=== PATIENT | male | born 1950 | race Caucasian/White ===

== ENCOUNTER 2020-04-11 14:40 | Emergency (ER) | payer MEDICARE, BLACK LUNG ==
[~2020-04-11 14:40] MED LIST: AMLODIPINE BES2.5 MG PO; BISOPROLOL-HCT1 EAC2 PO; COQ1050 MG PO; DOXEPIN HCL25 MG PO; FISH OIL 1,2001 EAC1 PO; LEVAQUIN750 MG PO; LIPITOR TAB 2020 MG PO; NEURONTIN 400400 MG PO; ULTRAM50 MG PO
[2020-04-11 17:55] LABS: HEMOGLOBIN 15.3 gm/dl (14.0-17.5); RED BLOOD COUNT 4.88 M/UL (4.20-5.50); WHITE BLOOD COUNT 14.3 K/UL (4.5-11.0)
[2020-04-11 18:11] LABS: BUN/CREATININE RATIO 20 (0-10)
[2020-04-11] MEDS ORDERED: ANUSOL HC SUPP1 SUPP PR (21:16)
== END 2020-04-11 21:45 | disposition home or self-care (01) ==
LOC: ER1 14:40
PROVIDERS: Emergency Medicine
DX: K64.9 Unspecified hemorrhoids (principal); R10.32 Left lower quadrant pain; R10.31 Right lower quadrant pain; R11.0 Nausea; I10 Essential (primary) hypertension
CPT/HCPCS: 80053; 81001; 83605; 83690; 85025; 96374; 96375; 99284; J2270; J2405; Q9967